=== PATIENT | female | born 1950 | race Two or more races ===

== ENCOUNTER 2023-07-25 11:49 | Inpatient (IN) | payer OTHER ==
[2023-07-25] MEDS ORDERED: GLIPIZIDE XL10 MG (14:11)
[2023-07-25] MEDS ORDERED: [UNRECOGNIZED DRUG - OTHER] PO (14:12)
[2023-07-25] MEDS ORDERED: CRESTOR20 MG PO (14:15)
[2023-07-25] MEDS ORDERED: TOPROL XL50 M1 PO (14:22)
[2023-07-25] MEDS ORDERED: AVAPRO300 MG PO (14:23)
[2023-07-30 14:23] LABS: ABG PH 7.345 (7.35-7.45); ABG PO2 78.1 mmHg (80-100); BASE EXCESS -4.4 mmol/l; BICARBONATE 20.8 mmol/l (23-25); SaO2 94.4 %
[2023-07-30 14:25] LABS: allen test SATISFACTORY; o2 40 %; puncture site RADIAL RIGHT
[2023-07-30 14:51] LABS: HEMATOCRIT 38.3 % (36.0-45.00); HEMOGLOBIN 12.8 g/dL (12.0-15.00); MEAN CELL VOLUME 90.9 fL (80.00-100.00); MEAN CORPUSCULAR HEMOGLOBIN 30.5 pg (27.00-32.0); MEAN CORPUSCULAR HGB CONC 33.5 g/dl (32.0-36.0); PLATELET COUNT 224 K/uL (150-450); RED BLOOD COUNT 4.21 M/uL (4.00-6.00); RED CELL DISTRIBUTION WIDTH 13.4 % (11.5-14.5)
[2023-07-30 15:21] LABS: ALBUMIN 3.1 gm/dL (3.4-5.0); CREATININE SERUM 0.88 mg/dL (0.55-1.02); GFR 63.52; MAGNESIUM 1.9 mg/dL (1.8-2.4); PHOSPHOROUS 2.9 mg/dL (2.5-4.9); POTASSIUM 4.17 mEq/L (3.5-5.1)
[2023-07-31 05:35] LABS: HEMATOCRIT 35.9 % (36.0-45.00); HEMOGLOBIN 12.1 g/dL (12.0-15.00); MEAN CELL VOLUME 90.9 fL (80.00-100.00); MEAN CORPUSCULAR HEMOGLOBIN 30.8 pg (27.00-32.0); MEAN CORPUSCULAR HGB CONC 33.8 g/dl (32.0-36.0); PLATELET COUNT 198 K/uL (150-450); RED BLOOD COUNT 3.95 M/uL (4.00-6.00); RED CELL DISTRIBUTION WIDTH 12.9 % (11.5-14.5)
[2023-07-31 06:45] LABS: ALBUMIN 2.7 gm/dL (3.4-5.0); CALCIUM 9.7 mg/dL (8.5-10.1); CREATININE SERUM 0.81 mg/dL (0.55-1.02); GFR 69.9; MAGNESIUM 1.7 mg/dL (1.8-2.4); PHOSPHOROUS 2.6 mg/dL (2.5-4.9); POTASSIUM 4.41 mEq/L (3.5-5.1)
[2023-07-31] MEDS ORDERED: SYNTHROID112 MCG (11:32)
[2023-07-31] MEDS ORDERED: NAPROXEN SODIU550 MG (11:32)
[2023-07-31] MEDS ORDERED: ACARBOSE25 MG (11:32)
[2023-07-31] MEDS ORDERED: METOPROLOL-HCT1 EAC1 (11:32)
[2023-07-31] MEDS ORDERED: JANUMET 50-5001 EACH (11:32)
[2023-07-31] MEDS ORDERED: GABAPENTIN300 M2 (11:32)
[2023-07-31] MEDS ORDERED: EZETIMIBE10 MG (11:32)
[2023-07-31] MEDS ORDERED: IBANDRONATE SO150 MG (11:32)
[2023-08-01 08:27] LABS: HEMATOCRIT 34.5 % (36.0-45.00); HEMOGLOBIN 11.5 g/dL (12.0-15.00); MEAN CELL VOLUME 90.4 fL (80.00-100.00); MEAN CORPUSCULAR HEMOGLOBIN 30.1 pg (27.00-32.0); MEAN CORPUSCULAR HGB CONC 33.3 g/dl (32.0-36.0); PLATELET COUNT 190 K/uL (150-450); RED BLOOD COUNT 3.81 M/uL (4.00-6.00); RED CELL DISTRIBUTION WIDTH 13.3 % (11.5-14.5)
[2023-08-01 08:47] LABS: CALCIUM 10.3 mg/dL (8.5-10.1); CREATININE SERUM 0.84 mg/dL (0.55-1.02); GFR 67.03; MAGNESIUM 2.2 mg/dL (1.8-2.4); POTASSIUM 4.56 mEq/L (3.5-5.1)
[2023-08-02 11:28] LABS: HEMATOCRIT 33.2 % (36.0-45.00); HEMOGLOBIN 10.9 g/dL (12.0-15.00); MEAN CELL VOLUME 92.3 fL (80.00-100.00); MEAN CORPUSCULAR HEMOGLOBIN 30.3 pg (27.00-32.0); MEAN CORPUSCULAR HGB CONC 32.8 g/dl (32.0-36.0); PLATELET COUNT 230 K/uL (150-450); RED CELL DISTRIBUTION WIDTH 12.9 % (11.5-14.5)
[2023-08-03 13:37] LABS: CALCIUM 10.5 mg/dL (8.5-10.1); CREATININE SERUM 0.67 mg/dL (0.55-1.02); GFR 87.01; MAGNESIUM 1.8 mg/dL (1.8-2.4); PHOSPHOROUS 2.2 mg/dL (2.5-4.9); POTASSIUM 4.54 mEq/L (3.5-5.1)
== END 2023-08-04 14:47 | disposition home or self-care (01) | DRG 330 ==
LOC: O/R 07-30 07:48 → SURG 07-30 12:30 → O/R 07-30 13:20 → SURG 07-30 14:13
PROVIDERS: Internal Medicine Geriatric Medicine; ADMIT Surgery; ATTEND Surgery
PROC: 07BC4ZX Excision of Pelvis Lymphatic, Percutaneous Endoscopic Approach, Diagnostic (ICD-10-PCS; 2023-07-30)
PROC: 0DTG4ZZ Resection of Left Large Intestine, Percutaneous Endoscopic Approach (ICD-10-PCS; principal; 2023-07-30 13:15)
DX: C18.6 Malignant neoplasm of descending colon (principal); K92.1 Melena; D37.4 Neoplasm of uncertain behavior of colon; R59.0 Localized enlarged lymph nodes